=== PATIENT | female | born 1940 | race Hispanic/Latino ===

== ENCOUNTER 2016-06-09 11:21 | Outpatient (CLI) | payer MEDICARE ==
--- NOTE | 2016-06-09 16:23 | Mammography Report ---
BILATERAL DIGITAL SCREENING MAMMOGRAM with CAD: 06/09/16 11:21:00 CLINICAL: Routine screening.History of a benign left surgical biopsy. COMPARISON:12/04/12 FINDINGS: The breasts are almost entirely fatty. A new circumscribed density at the left outer scar requires additional imaging.Bilateral benign calcifications. IMPRESSION: Left asymmetry requiring further workup. BI-RADS CATEGORY: 0 -- Additional Imaging Evaluation Required RECOMMENDATION: Recall for left mL and CC spot magnification views and left breast ultrasound if needed. ACR BI-RADS MAMMOGRAPHIC CODES: 0 = Needs additional imaging evaluation; 1 = Negative; 2 = Benign; 3 = Probably benign; 4 = Suspicious; 5 = Malignant; 6 = Known biopsy-proven malignancy COMMENT: 1. Dense breast tissue, i.e., adenosis, fibrocystic changes, etc., may obscure an underlying neoplasm. 2. Approximately 10% of cancers are not detected with mammography. 3. A negative mammography report should not delay biopsy if a clinically suspicious mass is present. COMMENT: Patient follow-up letters are generated via our [employer] application.
== END 2016-06-09 11:22 | disposition home or self-care (01) ==
LOC: SPVWC 11:21
PROVIDERS: ATTEND Internal Medicine
DX: Z12.31 Encounter for screening mammogram for malignant neoplasm of breast (principal)
CPT/HCPCS: 77067; G0202

== ENCOUNTER 2016-06-22 13:11 | Outpatient (CLI) | payer MEDICARE ==
--- NOTE | 2016-06-22 14:20 | Ultrasound Report ---
LEFT DIGITAL DIAGNOSTIC MAMMOGRAM and LEFT BREAST ULTRASOUND: 06/22/16 13:11:00 CLINICAL: Recalled for asymmetry. COMPARISON:06/09/16 screening FINDINGS: ML and spot magnification MLO and CC views were performed. A low-density bilobed circumscribed asymmetry persists adjacent to a scar on the CC spot view. It is not identified on the other views. Ultrasound of the outer left breast was performed and demonstrated normal fatty structures. No mass, cysts or lymph nodes correlate with the mammographic density. IMPRESSION: A probably benign asymmetry. BI-RADS CATEGORY: 3 - - Probably Benign RECOMMENDATION: Six month followup left mammogram. ACR BI-RADS MAMMOGRAPHIC CODES: 0 = Needs additional imaging evaluation; 1 = Negative; 2 = Benign; 3 = Probably benign; 4 = Suspicious; 5 = Malignant; 6 = Known biopsy-proven malignancy COMMENT: 1. Dense breast tissue, i.e., adenosis, fibrocystic changes, etc., may obscure an underlying neoplasm. 2. Approximately 10% of cancers are not detected with mammography. 3. A negative mammography report should not delay biopsy if a clinically suspicious mass is present. COMMENT: Patient follow-up letters are generated via our [employer] application.
== END 2016-06-22 13:12 | disposition home or self-care (01) ==
LOC: SPVWC 13:11
PROVIDERS: ATTEND Internal Medicine
DX: R92.8 Other abnormal and inconclusive findings on diagnostic imaging of breast (principal)
CPT/HCPCS: 76642; G0206

== ENCOUNTER 2017-01-15 10:23 | Outpatient (CLI) | payer MEDICARE ==
--- NOTE | 2017-01-15 10:50 | Mammography Report ---
Left mammogram: Routine views are pain for possible asymmetry seen in May 2016. Compared to prior exams in May as well as in 2012 the findings are stable with no significant change identified in the left breast. Impression: Stable exam. Recommendation: Return to annual mammogram screening. BI-RADS CATEGORY: 2 = Benign ACR BI-RADS MAMMOGRAPHIC CODES: 0 = Needs additional imaging evaluation; 1 = Negative; 2 = Benign; 3 = Probably benign; 4 = Suspicious; 5 = Malignant; 6 = Known biopsy-proven malignancy COMMENT: 1. Dense breast tissue, i.e., adenosis, fibrocystic changes, etc., may obscure an underlying neoplasm. 2. Approximately 10% of cancers are not detected with mammography. 3. A negative mammography report should not delay biopsy if a clinically suspicious mass is present.
== END 2017-01-15 10:24 | disposition home or self-care (01) ==
LOC: SPVWC 10:23
PROVIDERS: ATTEND Internal Medicine
DX: R92.8 Other abnormal and inconclusive findings on diagnostic imaging of breast (principal)
CPT/HCPCS: G0206-LT

== ENCOUNTER 2018-06-10 11:20 | Outpatient (CLI) | payer MEDICARE ==
--- NOTE | 2018-06-11 14:27 | Mammography Report ---
BILATERAL DIGITAL SCREENING MAMMOGRAM with CAD: 06/10/18 11:20:00 CLINICAL: Routine screening. COMPARISON:06/09/16 and left mammograms from 06/22/16 and 01/15/17. FINDINGS: The breasts are almost entirely fatty.Is stable left upper-outer benign postsurgical scar. No mass, architectural distortion or suspicious calcifications. IMPRESSION: No mammographic evidence of malignancy. BI-RADS CATEGORY: 2 -- Benign RECOMMENDATION: Routine mammographic screening in one year. COMMENT: Patient follow-up letters are generated by our [email or web address] application.
== END 2018-06-10 11:21 | disposition home or self-care (01) ==
LOC: SPVWC 11:20
PROVIDERS: ATTEND Internal Medicine
DX: Z12.31 Encounter for screening mammogram for malignant neoplasm of breast (principal)
CPT/HCPCS: 77067